=== PATIENT | female | born 1945 | race Caucasian/White ===

== ENCOUNTER 2016-12-22 08:42 | Day surgery (SDC) | payer MEDICARE, BC ==
[~2016-12-22 08:42] MED LIST: RINGERS SOLUTION,LACTATED 1,000 ML IV PRN
[2016-12-22] MEDS ORDERED: RINGERS SOLUTION,LACTATED 1,000 ML IV ONE ×2 (09:20→11:20)
[2016-12-22] MEDS ORDERED: RINGERS SOLUTION,LACTATED 1,000 ML IV PRN (10:55)
[2016-12-22] MEDS ORDERED: PANTOPRAZOLE SODIUM 40 MG in NORMAL SALINE 100 ML IV ONE (11:30)
--- NOTE | 2016-12-22 11:35 | OR ---
Operative Report - Dictated Report Narrative: Operative Report Date of operation 12/22/2016 Preoperative diagnosis: Dysphagia Postoperative diagnosis: Esophageal stricture from inflammation. Hiatal hernia. Gastropathy (pathology and CLOtest pending) Operation: EGD with biopsies. Balloon dilation of the esophagus to 20 mm Surgeon: Dr Campos Anesthesia: LUCY ECHOLS CRNA Indications for procedure: The patient is a 71-year-old female referred by Dr. Hazel. She was found to have esophageal stricture and gastritis on EGD in 2016. She had balloon dilation of the distal esophagus with improvement in dysphagia. She has however had recurrence of her dysphagia for solid food which has progressed. Findings: Inflammation at the GE junction with narrowing. Hiatal hernia. Gastropathy (pathology and CLOtest pending) Narrative of procedure: The patient was identified preoperatively, and prior to the administration of anesthetic a multidisciplinary timeout was observed With the patient in the recumbent position, a bite-block was placed, intravenous sedation was administered, and the patient's eyes covered with a towel. The flexible fiberoptic gastroscope was advanced into the posterior pharynx which appeared normal. The supraglottic larynx appeared normal. The cords appeared normal, moved well, and opposed in the midline. The scope was advanced under direct vision into the proximal esophagus which appeared normal. The esophagus appeared freely distensible with normal mucosa. The esophageal mucosa appeared normal down to the gastroesophageal junction where there was inflammation, edema, and narrowing. There was a sliding hiatal hernia. The scope was advanced into the stomach proper which was insufflated with air. There was mild natarajan gastric erythema with several flecks of coffee- ground material but no active ulcers or neoplastic lesions. A retroflexed view of the gastric fundus revealed no additional lesions but demonstrated the hiatal hernia. The scope was redirected toward the pylorus. The pylorus appeared patent. The scope was advanced into the duodenal bulb which appeared normal. The scope was advanced further to the horizontal portion of the duodenum which appeared normal, specifically the villous architecture appeared well preserved and clear bile was present. The scope was slowly withdrawn through the duodenal bulb with confirmation that no active ulcer was present. The scope was withdrawn into the stomach and claims customer service representative biopsies of gastric mucosa obtained for CLOtest and pathology. The biopsy sites were seen to be hemostatic. A balloon dilator was deployed in the stomach and withdrawn to lie across the GE junction which was dilated to 20 mm. There was minimal bleeding and the area was hemostatic and widely patent at the close of the procedure. The insufflated air was removed from the stomach, the scope withdrawn from the patient, and the procedure terminated. The patient tolerated the anesthetic and procedure well without complication and was transferred back to the ambulatory surgery area awake and in stable condition. The patient remained stable throughout a period of postoperative observation, was able to tolerate by mouth intake, and was up without assistance. I shared the operative findings with her, and she was given copies of the photographs which appear in the medical record. She was given a single dose of Protonix 40 mg IV prior to discharge. She was discharged home with instructions not to engage in hazardous activity today, but may return to normal activity tomorrow and advance diet as tolerated. She is to continue medications as listed in the history and physical exam. I made arrangements to contact the patient with biopsy reports and will make further recommendation based upon that result. Reviewed and electronically signed
[2016-12-22] MEDS ORDERED: PANTOPRAZOLE SODIUM 40 MG/100 ML PIGGYBACK IV ONE (11:43)
[2016-12-22 11:56] VITALS: BP 127/75
== END 2016-12-22 08:43 | disposition home or self-care (01) ==
LOC: AMB 08:42
PROVIDERS: ATTEND Surgery
PROC: 0D748ZZ Dilation of Esophagogastric Junction, Via Natural or Artificial Opening Endoscopic (ICD-10-PCS; 2016-12-22)
PROC: 0DB68ZX Excision of Stomach, Via Natural or Artificial Opening Endoscopic, Diagnostic (ICD-10-PCS; principal; 2016-12-22 10:00)
DX: K29.70 Gastritis, unspecified, without bleeding (principal); K44.9 Diaphragmatic hernia without obstruction or gangrene; K22.2 Esophageal obstruction; K21.9 Gastro-esophageal reflux disease without esophagitis; I10 Essential (primary) hypertension; E03.9 Hypothyroidism, unspecified; R73.01 Impaired fasting glucose; Z68.28 Body mass index [BMI] 28.0-28.9, adult